=== PATIENT | male | born 1930 | race Caucasian/White ===

== ENCOUNTER 2017-02-03 21:04 | Inpatient (IN) | payer MEDICARE, BC ==
[2017-02-04] MEDS ORDERED: Acetaminophen 325 MG Tab PO PRN (00:34)
[2017-02-04] MEDS ORDERED: Ibuprofen 400 MG Tab PO PRN (00:34)
[2017-02-04] MEDS ORDERED: Ondansetron 4 MG/2 ML SDV IV PRN (00:34)
[2017-02-04] MEDS ORDERED: Ondansetron 4 MG Tab.DIS PO PRN (00:34)
[2017-02-04] MEDS ORDERED: Sodium Chloride 0.9% 10 ML Syringe FLUSH PRN (01:49)
[2017-02-04] MEDS: Sodium Chloride 0.9% 1,000 ML IV SCH ×2 (10:55→18:59)
--- NOTE | 2017-02-04 11:27 | CR ---
INDICATION: Fall. CHEST: A single AP upright view of the chest was obtained 02/03/2017. The heart is normal in size and shape. The aorta is tortuous with calcification in the arch. Median sternotomy is noted with clips in the area of coronary arteries. Overlying EKG leads are noted. An active infiltrate or effusion, contusion, or pneumothorax was not identified. IMPRESSION: No acute process. MTDD
[2017-02-04] MEDS ORDERED: Metoprolol Tartrate 25 MG Tab PO SCH (12:00)
[2017-02-04] MEDS: Aspirin 325 MG Tab.EC PO SCH (12:14)
--- NOTE | 2017-02-04 12:16 | CR ---
INDICATION: Fell last night, hip pain. PELVIS WITH LEFT HIP: Frontal view of the pelvis and a lateral of the left hip were obtained and revealed mild degenerative changes at the hip joints with suggestion of some very minimal narrowing of the cranial lateral aspect of the left hip joint space. The cortex is somewhat irregular in the intertrochanteric area on the left, raising question of minimally displaced fracture in that area. CT would be confirmatory as felt to be clinically necessary. Mild degenerative changes are noted at sacroiliac joints additionally. IMPRESSION: 1. Cannot exclude undisplaced fracture at the intertrochanteric area on the left. As felt to be clinically necessary, CT may be helpful for confirmation. 2. Mild degenerative changes hip joint on the right and mild to moderate on the left, with some slight loss of cranial lateral joint space at the left hip joint. 3. ASD with iliofemoral artery calcifications. Report was called to Dr. Truong at 1135 hours, 02/04/2017. NOLA
--- NOTE | 2017-02-04 13:30 | CT ---
INDICATION: Left hip pain after a fall. Question fracture. CT LEFT LOWER EXTREMITY/HIP: Spiral 1.25-mm axial sections were obtained through the pelvis and hips. Arterial calcifications are noted incidentally. Degenerative changes are noted to a mild degree at the right hip, mild to moderate degree at the left hip with moderate loss of joint space cranial laterally at the hip joint on the left. A definite fracture site or dislocation was not identified. The prostate is enlarged, measuring 54 x 62 x 59 mm anteroposterior, transverse, and craniocaudad diameters. IMPRESSION: 1. No evidence of a fracture of the left hip or adjacent pelvis. 2. Degenerative changes are noted at the left hip joint with moderate joint space narrowing. 3. Minimal degenerative change is noted at the right hip joint. 4. ASD. 5. Prostatic enlargement with mild thickening of the urinary bladder wall, raising question of some trabeculation. Report was called to Dr. Truong immediately after the examination was completed, 02/04/2017. NOLA
[2017-02-04] MEDS ORDERED: Nitroglycerin 0.4 MG Tab.SL SL PRN (13:44)
[2017-02-04] MEDS: Meloxicam 7.5 MG Tab PO SCH (14:48)
[2017-02-04] MEDS: Clopidogrel 75 MG Tab PO SCH (14:48)
--- NOTE | 2017-02-04 15:06 | HP ---
ADMISSION DATE: 02/04/2017 CHIEF COMPLAINT: Recent fall with inability to get up, left hip and back pain. 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 Mr. 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 He says he was working yesterday, got off, went to the [employer]. He says he had a drink with his buddies, then went home. He got out of the car and apparently was walking around towards the steps to get into his house. He went to place something in the garbage that was on the steps and fell backwards, landing on the concrete. He said he did not lose consciousness. He landed flat on his back, may be a little bit on his left side and then was unable to get up. His who was in the house did not hear him for about 2 hours. Eventually, she became concerned, because he had not come home yet, contacted the granddaughter, because she thought she heard something in the garage. The granddaughter drove around looking for him, and eventually went to the house, saw that the garage door was opened and saw him lying on the concrete, unable to get up. She contacted the ambulance who brought him to the emergency room. There he was evaluated, had CT of his head and x-rays of his neck, all of which were unremarkable, but he was found to have significant elevation in CK, and his troponin was up slightly. He was, therefore, admitted for observation and further evaluation. He says he did not have any chest pain or shortness of breath. He says he just fell backwards and was unable to maintain his balance while on the steps. He again denies any headache at this time. He has no neck pain. He does complain of pain in his left back area, but no shortness of breath. He also complains of some pain in the left lateral hip and around his left knee area. He denies any significant dyspnea on exertion, nausea, vomiting, or diaphoresis. He has had no recent melena, hematochezia, hematemesis, hemoptysis, or hematuria. No fever, chills, night sweats, or cough have been noted. He otherwise says he has been feeling well. Over the years, we have noticed a slow progression of short-term memory loss, but he seems to reorient fairly well, and he is still able to function at work, although they have simplified his jobs quite a bit. He also is quite hard of hearing, but refuses to wear hearing aids regularly. CURRENT MEDICATIONS: Include: 1. Metoprolol succinate 100 mg at bedtime. 2. Meloxicam 7.5 mg daily for arthritis. 3. Lovastatin 40 mg daily. 4. Amlodipine 5 mg at bedtime. 5. Plavix 75 mg daily. 6. Aspirin 162 mg daily. 7. He has p.r.n. Nitrostat, apparently has not been using it. ALLERGIES: None that are known. SOCIAL HISTORY: He does not smoke. He says he did so for a short time many years ago, but has quit for many years. Alcohol, one or maybe two drinks a day. PAST MEDICAL HISTORY: Pertinent. In that, he has had a previous T and A in 1943. In 1997, he had a right rotator cuff repair. He had an emergent coronary artery bypass in 2002 for chest pain and a positive angiogram that was a 5- vessel bypass. He had a normal Cardiolite stress test in 2005. He began having recurrent chest pain in 2009. At that time, a Lexiscan was positive for inferior ischemia. In 2010, he underwent a stent of his right coronary artery. He has been pretty much asymptomatic since and has been quite active. He still walks on a regular basis, and as I said, still working. He had a TUR of his prostate in 2002 for BPH symptoms, apparently pathology was negative. FAMILY HISTORY: Unremarkable at this age. REVIEW OF SYSTEMS: Other than that discussed above, he still complains of decreased hearing. He has some discomfort, especially in his knees and low back area intermittently, but the meloxicam has helped that considerably. He denies any abdominal complaints. He does admit to nocturia once or twice at night, but no significant incontinence. He says he has a history of gout, but is currently not taking any medicine for it. PHYSICAL EXAMINATION: VITAL SIGNS: At this time, shows him to be afebrile. Initial blood pressure when he arrived was 126/57, pulse is 82 and regular, respirations are 22, O2 saturation on room air is 100%. His weight is 175 pounds, height is 5 feet 2 inches. HEENT: Head is normocephalic and atraumatic. The pupils are round and reacting well to light and accommodation. He has significant cataracts bilaterally. Sclerae and conjunctivae are clear. TMs are both clear. Nasal passages are open without discharge. Pharynx and palate are unremarkable except for somewhat dry mucous membranes. They are otherwise pink. NECK: Supple. No specific spinous process tenderness is noted. He has some ecchymosis on the upper thoracic midline of his back and then significant ecchymosis on the left lower back area with some tenderness. There is no crepitation. The chest is clear to auscultation and percussion. No chest wall tenderness is noted except in the back area on the left side. CARDIOVASCULAR: Reveals a normal S1 and S2 with a regular rhythm. There is no murmur, rub, or gallop noted. Sternotomy scar is well healed. ABDOMEN: Soft, somewhat obese, but at this time totally nontender. There is no rebound or rigidity. Bowel sounds are normal. No bruits are noted. EXTREMITIES: Without clubbing, but he has multiple ecchymotic areas in and around the knees on both legs, especially the lateral aspect of the left leg. He has rather significant point tenderness over the greater trochanter on the left hip. Rotation of his left hip is quite painful, especially over the greater trochanteric area. Leg length is equal. Hypertrophy of the toenails is noted bilaterally. He has excellent peripheral pulses distally. There is no neurocirculatory deficits noted in the upper or lower extremities. He can tell me he is at the hospital. He knows the day, date, and year. He has a little trouble remembering what has happened, but the more I talked to him, the more we are able to get a better history. LABORATORY DATA: The patient had a cervical spine x-rays done showing some degenerative change, but otherwise, no other abnormalities. Chest x-ray showed no acute process with no infiltrates, no evidence of fractures, and evidence of an old sternotomy. His hemoglobin was 14.6, hematocrit of 43.6, white count was elevated at 21,900 with 88 segs, 7 lymphocytes, 5 monos. His Protime INR was 1.15. Sodium 136, potassium of 4, chloride of 107, CO2 was 18, BUN was elevated at 32, creatinine 1.5, glucose 148, calcium was 8.8. Liver functions are normal except for a slight elevation in AST at 47. He had a creatine kinase elevated at 1149. His troponin was slightly elevated at 1.17. Total protein and albumin were normal. Urinalysis showed a specific gravity of 1.030, 15% ketones, and large amount of occult blood, 5 to 10 rbc's and 0 to 5 wbc's. Few coarse granular casts and fine granular casts were noted. Blood alcohol was less than 0.01. IMPRESSION: 1. Recent fall with contusion of his left chest, increased left hip pain. 2. Arteriosclerotic heart disease with previous history of coronary artery bypass and coronary artery stenting. 3. History of transurethral resection of the prostate for benign prostatic hyperplasia. 4. History of hypertension. 5. Osteoarthritis. PLAN: We are going to repeat the patient's troponin and we will get x-rays of his hip. Depending on those results, we will proceed from there. Continue his beta paul, aspirin, and Plavix. /[id number] /[place]
[2017-02-04] MEDS ORDERED: amLODIPine 5 MG Tab PO SCH (21:00)
[2017-02-04] MEDS ORDERED: Metoprolol Succinate 100 MG Tab.ER PO SCH (21:00)
[2017-02-05] MEDS: Sodium Chloride 0.9% 1,000 ML IV SCH (02:50)
--- NOTE | 2017-02-05 06:54 | ER ---
DATE SEEN: 02/03/2017 TIME SEEN: The patient was seen at 2115 hours. HISTORY OF PRESENT ILLNESS: Greg is an 86-year-old man who was on the garage, fell down, and laid on the floor with loss consciousness. He does not remember why this occurred. He denies headache, neck stiffness, trauma, neck pain, jaw pain, back pain, headache, compromised vision, diplopia, blurred vision. When I asked what happened, he says "I don't know," "I was in the garage, was working on the house and I just fell down." His lives in the house did not hear him. She hollered at him several times, finally came out to the garage several hours later, found him on the floor. Ambulance was called. He was transferred to the hospital for further evaluation. The patient denies history of heart attack, chest pain, shortness of breath, cough, recent infection, headache, neck stiffness, seizure, and arrhythmia. 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 Status post CABG, hypertension, status post TURP. Apparently, he had laid on the floor of the garage for approximately 2 hours and his became concerned, called the granddaughter, who called the ambulance who brought him to the hospital for further evaluation. PAST MEDICAL HISTORY: Denies chest pain, shortness of breath, cough, smoking, blood in stool, black tarry stool, diarrhea, constipation, GERD. He has had some memory loss over the past years. MEDICATIONS: 1. Metoprolol succinate 100 mg h.s. 2. Aspirin 162 mg daily. 3. Plavix 75 mg daily. 4. Nitrostat p.r.n. 5. Amlodipine 5 mg h.s. 6. Lovastatin 40 mg daily. 7. Meloxicam 7.5 mg daily. 8. Metoprolol succinate 100 mg h.s. SOCIAL HISTORY: Alcohol occasionally up to 1-2 drinks per day. Smoking, quit many years ago. No longer smoking. As noted above, previous cardiac CABG 2002, five-vessel bypass, stent placement 2010, right coronary artery, TURP 2002. REVIEW OF SYSTEMS: Noncontributory. PHYSICAL EXAMINATION: GENERAL: Alert man. No evidence for ecchymosis,but he does have three superficial abrasion to the frontal area of his face. HEENT: PERRLA intact. Pharynx without abnormality. No hemotympanum. No Jackson sign. No ecchymosis, swelling, tenderness to scalp or areas of trauma. No facial irregularity or tenderness to maxillary, facial, or nasal structures. Jaw without abnormality. Teeth without abnormality. Pharynx without erythema. NECK: No bruits in neck. LUNGS: Clear to auscultation without rales, rhonchi, or wheezes. No thyromegaly. HEART: S1, S2. No murmur. ABDOMEN: Increased abdominal girth, not extensive. EXTREMITIES: Lower extremities without edema. Ecchymosis, knees. Left lateral hip discomfort. DIAGNOSTIC DATA: CAT scan of the cervical spine, degenerative changes. No fracture. CAT scan of the head, mild periventricular subcortical white matter, decreased density. No acute intracranial pathology or bleed. EKG: Sinus rhythm, borderline NE interval prolongation 216 microseconds. LABORATORY FINDINGS: White count 21,900, PMNs 88, lymphs 7, monos 5, hemoglobin 14.6, INR 1.15. Complete metabolic panel: Sodium 136, potassium 4.0, chloride 107, CO2 of 18, BUN 32, creatinine 1.5, GFR is 44, BUN and creatinine ratio 21.3. Glucose 148. CPKs 1149. Troponin slightly elevated at 0.17. Urinalysis: Large blood, 15 ketones, moderate mucus. CPK 1149. Ethyl alcohol less than 0.01. ASSESSMENT: 1. Possible [id number] myocardial infarction. 2. Elevated CPK secondary to rhabdomyolysis that also could elevate his troponin , but doubtful. 3. The patient's hemovascular status is stable. 4. If he has myocardial injury, it would be a [id number] myocardial infarction. 5. Sinus rhythm. No evidence for ST elevation. 6. Leukocytosis, etiology indeterminate with neutrophilia. 7. Trace elevation of anticoagulation, glucose elevation. 8. Hypertension, controlled. 9. Arthritis. 10.Dyslipidemia. 11.The patient is admitted for further observation on telemetry. No evidence for central nervous system bleed or concussion. /[id number] MAXX/[place] FERNANDEZD
[2017-02-05] MEDS: Meloxicam 7.5 MG Tab PO SCH (09:05)
[2017-02-05] MEDS: Clopidogrel 75 MG Tab PO SCH (09:05)
[2017-02-05] MEDS: Aspirin 325 MG Tab.EC PO SCH (09:05)
--- NOTE | 2017-02-05 13:42 | PN ---
DATE SEEN: 02/05/2017 SUBJECTIVE: This 86-year-old gentleman is seen today for followup. He had a fall recently and laid on his garage floor for a couple of hours. He presented to the emergency room somewhat confused and found to have a mildly elevated troponin. We elected to admit him for a possible CT and further workup. He has had no headaches, denies any blurred vision. No nausea or vomiting. Denies any chest pain, and he had no chest pain throughout the entire episode. His medications were reviewed. Allergies were reviewed. Labs were also reviewed when he came in. On the evening of admission, his troponin was 0.17. Yesterday, it ezekiel to 0.34. CK was also elevated at 1149 and his white count was elevated of 21,900. Chest x-ray was unremarkable, but he had extensive bruising across his upper back on both sides, in the midline, and then on the left lower back and flank area along the left hip on both legs. X-rays of his hip were done because of severe tenderness over the greater trochanteric area and increased pain with movement. The x-ray showed a possible fracture through the femoral neck. CT scan was done for confirmation, and this proved to be negative. Today, he says he is feeling better. He slept better. He has no shortness of breath. Denies any chest pain or palpitations. He has been monitored on telemetry for possible CT, and thus far, no significant rhythm disturbances have been noted. OBJECTIVE: GENERAL: He appears to be in no acute distress at this time. VITAL SIGNS: Blood pressure 132/65, pulse is 94 and regular, respirations are 20 and unlabored, O2 saturation is 96%. HEENT: Unremarkable. The head proved to be atraumatic and normocephalic. NECK: He has slightly decreased range of motion of his neck, but no spinous process tenderness or pain. Ecchymosis is noted at the base of the neck posteriorly at approximately T1 and T2 with only minimal tenderness. He has significant ecchymosis across the upper shoulders bilaterally in the back area and then on the left side of his chest with only minimal tenderness. CHEST: Completely clear. CARDIOVASCULAR: Reveals a normal S1 and S2 without murmur, rub, or gallop. ABDOMEN: Soft. No specific point tenderness. Some obesity is noted. There is no rebound or rigidity. EXTREMITIES: Without clubbing, no edema. He still has point tenderness over the greater trochanteric area in the left hip. He has ecchymotic areas in and around both knees and on the left hip. His range of motion, however, is full with only minimal discomfort with movement of the hip. NEUROLOGIC: His cranial nerves are intact. His sensory and motor exam is normal. He is able to tell me the day, date, and he missed the year by 1, and he missed the actual date by 1. He could tell me the correct day of the week, however, and he knew the correct month, he knew the president, and he knew who I am. He knew where he is. LABORATORY DATA: Lab today revealed white count down to 11,100 with normal differential; hemoglobin is 12.8, and this has dropped, but presumed from hydration as he was a bit dehydrated when he came in, and IV fluids have been running through the night. Sodium 137, potassium at 3.7, creatinine is down to 1.2, BUN of 30. His troponin has dropped from 0.34 yesterday afternoon, down to 0.19 today. IMPRESSION: 1. Recent fall with some mild rhabdomyolysis. The elevated troponin I think is more related to the stress from the fall. I do not see any evidence of myocardial infarction, and his EKG did not show any evidence of ST-T segments indicative of myocardial infarction. 2. History of hypertension. 3. Previous history of benign prostatic hypertrophy. 4. Osteoarthritis. PLAN: We are going to saline lock his IV, get him up and about, have PT/OT take a look at him and see how he is doing, and we will recheck a troponin later and proceed from there. /[id number] WM/MODL
[2017-02-05 15:19] VITALS: BP 154/69
--- NOTE | 2017-02-06 01:54 | PN ---
DATE SEEN: 02/05/2017 TIME: 1827 hours. SUBJECTIVE: This is an 86-year-old gentleman seen today for followup. He had a recent fall, lying in his garage floor for 2 hours. He was brought in and found to have some multiple contusions of his back, elevated creatine kinase and mildly elevated troponin. We rechecked his troponin and that had risen yesterday. His EKG was normal. Chest x-ray was unremarkable. He had no chest pain whatsoever, so was recheck today, actually had improved considerably. He has only minimal discomfort. There is some mild confusion noted in that he asks the same question multiple times, but he was able to tell me the day, date, year, could tell me where he was, my name, and knew the president. Because of that, we have had the PT/OT take a look at him. They feel he has competent to be at home for ADL and strengths. His balance actually was quite good. We have had him up and walking around, he has done well. His appetite has been good. He denies any headaches. He has had no other complaints of discomfort and would like to be discharged home. OBJECTIVE: GENERAL: He appears to be quite comfortable at this time and in no acute distress, quite anxious to leave. VITAL SIGNS: Blood pressure was 154/69, pulse is 94 and regular, respirations were 20 and unlabored, O2 saturations 98%. HEENT: Unremarkable with head being normocephalic and atraumatic. Bilateral cataracts are noted. CHEST: Clear. CARDIOVASCULAR: Unchanged with a regular rhythm. There was no gallop or rub. ABDOMEN: Unremarkable except for obesity. EXTREMITIES: Negative. IMPRESSION: 1. Recent fall with multiple contusions of his upper and lower back on both legs etc. 2. Arteriosclerotic heart disease with previous history of coronary artery bypass and coronary artery stenting, but currently stable. 3. Hypertension. 4. Osteoarthritis. PLAN: We had a long discussion. We have been able to get the patient to agreed to home health evaluation as his apparently is much more forgetful and he has been taking care of her. I did talk to him about maybe not driving now for a bit and see how he does and we will see with Home Health. He says about his home situation. I think it would be prudent because of his forgetfulness, the recent fall, multiple contusions, and most importantly evaluating the home situation that he have Home Health, and a [id number] discussion was made with the patient regarding the above. We will plan on followup in 2 weeks for recheck, but if new symptoms are noted or becomes worse in any way to let us know. /[id number] /[place]
== END 2017-02-05 18:54 | disposition home health service (06) | DRG 566 ==
LOC: FB.ED 21:04 → FB.MS 02-04 00:34 → FB.ICU 02-04 12:20 → OBSVTOIN 02-04 12:20 → FB.MS 02-05 11:36
PROVIDERS: ADMIT Emergency Medicine; ATTEND Family Medicine
DX: T79.6XXA Traumatic ischemia of muscle, initial encounter (principal); W17.89XA Other fall from one level to another, initial encounter; S80.12XA Contusion of left lower leg, initial encounter; S80.11XA Contusion of right lower leg, initial encounter; S30.0XXA Contusion of lower back and pelvis, initial encounter; S20.229A Contusion of unspecified back wall of thorax, initial encounter; W10.8XXA Fall (on) (from) other stairs and steps, initial encounter; Y93.01 Activity, walking, marching and hiking; Y92.008 Other place in unspecified non-institutional (private) residence as the place of occurrence of the external cause; M25.552 Pain in left hip; I10 Essential (primary) hypertension; R77.8 Other specified abnormalities of plasma proteins; Z87.891 Personal history of nicotine dependence; I25.10 Atherosclerotic heart disease of native coronary artery without angina pectoris; E78.5 Hyperlipidemia, unspecified; Z95.1 Presence of aortocoronary bypass graft; Z95.5 Presence of coronary angioplasty implant and graft; M19.90 Unspecified osteoarthritis, unspecified site; H91.90 Unspecified hearing loss, unspecified ear; Z79.82 Long term (current) use of aspirin; R41.0 Disorientation, unspecified
CPT/HCPCS: 36415 ×2; 70450; 71010; 72125; 73501; 73700; 80053; 82550; 84484 ×2; 85025; 85610; 87040; 93005; 99285; A9270 ×2; G0480; J7040; J7050; 80048; 81001; 99284

== ENCOUNTER 2018-01-06 16:25 | Emergency (ER) | payer MEDICARE, BC ==
[2018-01-06] MEDS ORDERED: Amoxicillin/Clavulanate K 500-125 MG Tab PO ONE (18:14)
[2018-01-06 18:35] VITALS: BP 155/60
--- NOTE | 2018-01-08 01:28 | ER ---
DATE SEEN: 01/06/2018 TIME SEEN: The patient was seen at 1655 hours. HISTORY OF PRESENT ILLNESS: This 87-year-old man comes in with a history of severe right nasal bleed. He was seen at 1655 hours. Brought in by his son. PAST MEDICAL HISTORY: Hypertension, atherosclerotic vascular disease. No history of stroke and no heart attacks. MEDICATIONS: 1. He is on antihypertensive medicine metoprolol succinate 100 mg daily. 2. Meloxicam for arthritis. 3. Lovastatin for dyslipidemia. 4. Clopidogrel for irregular heartbeats, atrial fibrillation. 5. Amlodipine 5 mg for hypertension. 6. Acetaminophen p.r.n. 7. Aspirin 162 mg daily. ALLERGIES: None. REVIEW OF SYSTEMS: Negative, except the patient noted the onset of bleeding in the right naris, but he did not feel lightheaded. Precautions were taken. He did not fall. He is taking clopidogrel. He is not picking his nose. He has spontaneous onset of right nasal bleed. The bleed is diminished. It went to the back of his throat. PHYSICAL EXAMINATION: GENERAL: Alert man, short in stature, in mild distress, pleasant, and decreased hearing. HEENT: He has his own teeth. PERRLA intact. Pharynx without abnormality. There is trace of blood in the right posterior pharynx. Nares, right crust of blood mid septum.. There was spontaneous bleeding to the right naris. Left naris negative. He is constantly placing a towel on his face, the towel is soaked with blood. Constant bleeding persists. NECK: No bruits. No thyromegaly. No masses. LUNGS: Clear with rales at the bases, posterior. HEART: S1, S2. No irregular rate and rhythm. ABDOMEN: Soft. No guarding. No abdominal discomfort. EXTREMITIES: Without abnormality. No pedal edema. ASSESSMENT: Right naris epistaxis. He was treated aggressively and quickly, no cocaine was available for nasal spray, consequently lidocaine plus Afrin sprayed into his nares. Once this was completed, then repetitive efforts to suction and visualize the site of bleeding demonstrated middle septal bleed. This was treated with the Rhino Rocket. The patient tolerated this with moderate discomfort, but was appreciative that the bleeding stopped. Balloon was inflated. Later on, actually either it fell off or he pulled it out, but it came out and was replaced. The balloon was over inflated and gradually the volume was decreased. Total volume, 5 to 6 mL. His pharynx was rechecked on multiple occasions and after gargling and washing, the pharynx was noted, he had no further bleeding. The patient was then dismissed home. He will have his Rhino Rocket removed in 3 days. Use Augmentin 500 mg t.i.d. and use probiotics, avoid pulling on the balloon. DIAGNOSES: 1. Right naris epistaxis. 2. Transient hypertension. 3. Dyslipidemia. 4. Anticoagulants for atrial fibrillation. 5. Atherosclerotic vascular disease. FOLLOWUP: The patient to follow up with his doctor in 3 days. /[id number] MAXX/[place] VACA
== END 2018-01-06 18:25 | disposition home or self-care (01) ==
LOC: FB.ED 16:25
DX: R04.0 Epistaxis (principal); I10 Essential (primary) hypertension; E78.5 Hyperlipidemia, unspecified; I48.91 Unspecified atrial fibrillation; Z79.01 Long term (current) use of anticoagulants; Z79.82 Long term (current) use of aspirin
CPT/HCPCS: 30903; 36415; 80053; 83605; 85025; 86140; 87040; 99283; A9270; 30901

== ENCOUNTER 2019-01-26 09:19 | Inpatient (IN) | payer MEDICARE, BC ==
--- NOTE | 2019-01-26 10:14 | EDM.PDOC ---
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 Yesterday was not checked by granddaughter, but granddaughter called him. He "sounded different like he had laryngitis"..." his voice was different." This morning he was found on the floor approximately 9:00 AM by his granddaughter. The fall duration is indeterminate and unwitnessed. He was found laying next to his bed. He denies any pain. Indeterminate if he has taken his morning medicines - Related Data Allergies Allergy/AdvReac Type Severity Reaction Status Date / Time No Known Allergies Allergy Verified 01/26/19 09:29 Home Meds: Home Meds Aspirin [Halfprin] 81 mg PO DAILY 02/04/17 [History] Clopidogrel [Plavix] 75 mg PO DAILY 02/04/17 [History] Lovastatin [Mevacor] 40 mg PO WITHDINNER 02/04/17 [History] Meloxicam 7.5 mg PO DAILY 02/04/17 [History] Metoprolol Succinate 100 mg PO BEDTIME 02/04/17 [History] Nitroglycerin [Nitrostat] 0.4 mg PO Q5M PRN 02/04/17 [History] amLODIPine [Norvasc] 5 mg PO BEDTIME 02/04/17 [History] Acetaminophen [Tylenol] 650 mg PO Q4H PRN #100 tablet 02/05/17 [Rx] Esomeprazole [NexIUM] 20 mg PO DAILY 01/26/19 [History] Past Medical History HEENT History: Reports: Hard of Hearing, Impaired Vision Genitourinary History: Reports: Other (See Below) Other Genitourinary History: prostate surgery Musculoskeletal History: Reports: Back Pain, Chronic - Past Surgical History Cardiovascular Surgical History: Reports: Coronary Artery Bypass Social & Family History - Family History Family Medical History: Unobtainable - Tobacco Use Smoking Status *Q: Never Smoker - Caffeine Use Caffeine Use: Reports: Coffee - Recreational Drug Use Recreational Drug Use: No ED ROS GENERAL - Review of Systems Review Of Systems: See Below Constitutional: Reports: Weakness, Other (Dementia decreased hearing confusion) HEENT: Reports: Hearing Loss, Other (3 days off) Respiratory: Reports: Cough Cardiovascular: Reports: No Symptoms Endocrine: Reports: No Symptoms GI/Abdominal: Reports: No Symptoms : Reports: No Symptoms Musculoskeletal: Reports: No Symptoms Skin: Reports: No Symptoms Neurological: Reports: No Symptoms Psychiatric: Reports: No Symptoms Hematologic/Lymphatic: Reports: No Symptoms Immunologic: Reports: No Symptoms ED EXAM, GENERAL - Physical Exam Exam: See Below Free Text/Narrative:: Asthenic pleasant snoring gentleman easily aroused whose skin feels warm, has marked decreased hearing and is attended by his granddaughter who is very attentive, helpful and knowledgeable. Exam Limited By: Altered Mental Status General Appearance: Alert, Mild Distress, Other (Sleeping, snoring, but easily aroused) Eye Exam: Bilateral Eye: Normal Inspection Ears: Normal External Exam, Normal Canal, Normal TMs, Hearing Loss Ear Exam: Bilateral Ear: Auricle Normal, Canal Normal, TM normal Nose: Normal Inspection Throat/Mouth: Normal Inspection, Normal Lips, Normal Teeth, Normal Gums, Normal Oropharynx Head: Atraumatic, Normocephalic Neck: Normal Inspection, Other (no bruits) Respiratory/Chest: No Respiratory Distress, No Accessory Muscle Use, Other ( Scattered rales) Cardiovascular: Normal Peripheral Pulses, Regular Rate, Rhythm, No Edema, No Gallop, No JVD, No Murmur Peripheral Pulses: 1+: Radial (L), Radial (R), Dorsalis Pedis (L), Dorsalis Pedis (R) GI/Abdominal: Normal Bowel Sounds, Soft, Non-Tender, No Organomegaly, No Distention, No Abnormal Bruit (Male) Exam: Deferred Rectal (Males) Exam: Deferred Back Exam: Normal Inspection Neurological: Alert, Oriented, CN II-XII Intact, Normal Cognition, Normal Reflexes, No Motor/Sensory Deficits, Other (Decreased hearing) Psychiatric: Normal Affect, Normal Mood Skin Exam: Warm, Dry, Normal Color Lymphatic: No Adenopathy EKG INTERPRETATION Rhythm: NSR [place]: Normal P-Wave: Present QRS: Normal ST-T: Normal QT: Normal EKG Interpretation Comments: Borderline increased IL interval and QT interval Course - Vital Signs Last Recorded V/S: Last Vital Signs Temp 36.9 C 01/26/19 13:30 Pulse 111 H 01/26/19 13:30 Resp 18 01/26/19 13:30 BP 146/67 H 01/26/19 13:30 Pulse Ox 95 01/26/19 13:30 - Orders/Labs/Meds Orders: Active Orders 24 hr Category Date Time Status EKG Documentation Completion [RC] ASDIRECTED Care 01/26/19 10:10 Active CXR [Chest 1V Frontal] [CR] Stat Exams 01/26/19 10:09 Taken Cervical Spine wo Cont [CT] Stat Exams 01/26/19 10:14 Taken Head wo Cont [CT] Stat Exams 01/26/19 10:09 Taken CULTURE BLOOD [BC] Urgent Lab 01/26/19 11:50 Results CULTURE BLOOD [BC] Urgent Lab 01/26/19 12:00 Received CULTURE STREP A CONFIRMATION [RM] Stat Lab 01/26/19 10:26 Results STREP SCRN A RAPID W CULT CONF [RM] Stat Lab 01/26/19 10:26 Results Blood Culture x2 Reflex Set [OM.PC] Urgent Oth 01/26/19 11:33 Ordered Medication Orders Acetaminophen (Tylenol) 650 mg PO Q4H PRN PRN Reason: Pain (Mild 1-3)/fever Albuterol/Ipratropium (Duoneb 3.0-0.5 Mg/3 Ml) 3 ml NEB QIDRT [facility] Bisacodyl (Dulcolax) 5 mg PO DAILY PRN PRN Reason: Constipation Sodium Chloride (Normal Saline) 1,000 mls @ 125 mls/hr IV ASDIRECTED [facility] Last Admin: 01/26/19 14:32 Dose: 125 mls/hr Vancomycin HCl 500 mg/Vancomycin HCl 750 mg/ Sodium Chloride 500 mls @ 333.333 mls/hr IV ONETIME ONE Stop: 01/26/19 16:29 Metoprolol Tartrate (Lopressor) 25 mg PO BID [facility] Stop: 01/26/19 21:01 Ondansetron HCl (Zofran Odt) 4 mg PO Q4H PRN PRN Reason: nausea, able to take PO Vancomycin HCl (Vancomycin) 1 gm IV .PHARMACY TO DOSE [facility] Labs: Laboratory Tests 02/26/19 02/26/19 02/26/19 Range/Units 10:18 10:25 10:25 WBC 18.8 H (4.5-12.0) X10-3/uL RBC 5.33 (4.30-5.75) x10(6)uL Hgb 15.0 (11.5-15.5) g/dL Hct 44.2 (30.0-51.3) % MCV 82.8 (80-96) fL MCH 28.1 (27.7-33.6) pg MCHC 33.9 (32.2-35.4) g/dL RDW 15.3 (11.5-15.5) % Plt Count 324 (125-369) X10(3)uL MPV 7.6 (7.4-10.4) fL Add Manual Diff Yes Neutrophils % (Manual) 85 H (46-82) % Band Neutrophils % 5 (0-6) % Lymphocytes % (Manual) 6 L (13-37) % Monocytes % (Manual) 4 (4-12) % PT (8.7-11.1) INR (0.89-1.13) D-Dimer, Quantitative (0.0-0.59) mg/LFEU Sodium (135-145) mmol/L Potassium (3.5-5.3) mmol/L Chloride (100-110) mmol/L Carbon Dioxide (21-32) mmol/L BUN (7-18) mg/dL Creatinine (0.70-1.30) mg/dL Est Cr Clr Drug Dosing mL/min Estimated GFR (MDRD) (>60) BUN/Creatinine Ratio (9-20) Glucose (80-116) mg/dL Lactic Acid (0.4-2.2) mmol/L Calcium (8.6-10.2) mg/dL Total Bilirubin (0.1-1.3) mg/dL AST (5-25) IU/L ALT (12-36) U/L Alkaline Phosphatase (56-112) IU/L Creatine Kinase (60-160) IU/L Troponin I 0.178 H* (<0.017-0.056) ng/mL NT-Pro-B Natriuret Pep (<=450) pg/mL Total Protein (6.0-8.0) g/dL Albumin (2.9-4.5) g/dL Globulin g/dL Albumin/Globulin Ratio TSH, Ultra Sensitive 1.36 (0.36-3.74) IU/mL Urine Color Yellow (YELLOW) Urine Appearance Clear (CLEAR) Urine pH 6.0 (5.0-6.5) Ur Specific [place] 1.010 (1.010-1.025) Urine Protein 30 H (NEGATIVE) mg/dL Urine Glucose (UA) Normal (NEGATIVE) mg/dL Urine Ketones 15 H (NEGATIVE) mg/dL Urine Occult Blood Moderate H (NEGATIVE) Urine Nitrite Negative (NEGATIVE) Urine Bilirubin Negative (NEGATIVE) Urine Urobilinogen Normal (NEGATIVE) mg/dL Ur Leukocyte Esterase Negative (NEGATIVE) Urine RBC 5-10 (0) Urine WBC 0-5 (0) Ur Squamous Epith Cells Few H (NS,R,O) Urine Bacteria Few H (NS) Fine Granular Casts Occasional H (NS) WBC Casts Occasional H (NS) 01/26/19 01/26/19 01/26/19 Range/Units 10:25 10:25 10:25 WBC (4.5-12.0) X10-3/uL RBC (4.30-5.75) x10(6)uL Hgb (11.5-15.5) g/dL Hct (30.0-51.3) % MCV (80-96) fL MCH (27.7-33.6) pg MCHC (32.2-35.4) g/dL RDW (11.5-15.5) % Plt Count (125-369) X10(3)uL MPV (7.4-10.4) fL Add Manual Diff Neutrophils % (Manual) (46-82) % Band Neutrophils % (0-6) % Lymphocytes % (Manual) (13-37) % Monocytes % (Manual) (4-12) % PT 11.4 H (8.7-11.1) INR 1.18 H (0.89-1.13) D-Dimer, Quantitative 2.05 H (0.0-0.59) mg/LFEU Sodium 134 L (135-145) mmol/L Potassium 4.0 (3.5-5.3) mmol/L Chloride 99 L (100-110) mmol/L Carbon Dioxide 20 L (21-32) mmol/L BUN 22 H (7-18) mg/dL Creatinine 2.0 H* (0.70-1.30) mg/dL Est Cr Clr Drug Dosing 19.34 mL/min Estimated GFR (MDRD) 32 L (>60) BUN/Creatinine Ratio 11.0 (9-20) Glucose 179 H (80-116) mg/dL Lactic Acid (0.4-2.2) mmol/L Calcium 8.7 (8.6-10.2) mg/dL Total Bilirubin 0.7 (0.1-1.3) mg/dL AST 25 (5-25) IU/L ALT 18 D (12-36) U/L Alkaline Phosphatase 97 (56-112) IU/L Creatine Kinase (60-160) IU/L Troponin I (<0.017-0.056) ng/mL NT-Pro-B Natriuret Pep 2059 H* (<=450) pg/mL Total Protein 7.3 (6.0-8.0) g/dL Albumin 3.3 (2.9-4.5) g/dL Globulin 4.0 g/dL Albumin/Globulin Ratio 0.8 TSH, Ultra Sensitive (0.36-3.74) IU/mL Urine Color (YELLOW) Urine Appearance (CLEAR) Urine pH (5.0-6.5) Ur Specific [place] (1.010-1.025) Urine Protein (NEGATIVE) mg/dL Urine Glucose (UA) (NEGATIVE) mg/dL Urine Ketones (NEGATIVE) mg/dL Urine Occult Blood (NEGATIVE) Urine Nitrite (NEGATIVE) Urine Bilirubin (NEGATIVE) Urine Urobilinogen (NEGATIVE) mg/dL Ur Leukocyte Esterase (NEGATIVE) Urine RBC (0) Urine WBC (0) Ur Squamous Epith Cells (NS,R,O) Urine Bacteria (NS) Fine Granular Casts (NS) WBC Casts (NS) 01/26/19 01/26/19 Range/Units 10:25 12:00 WBC (4.5-12.0) X10-3/uL RBC (4.30-5.75) x10(6)uL Hgb (11.5-15.5) g/dL Hct (30.0-51.3) % MCV (80-96) fL MCH (27.7-33.6) pg MCHC (32.2-35.4) g/dL RDW (11.5-15.5) % Plt Count (125-369) X10(3)uL MPV (7.4-10.4) fL Add Manual Diff Neutrophils % (Manual) (46-82) % Band Neutrophils % (0-6) % Lymphocytes % (Manual) (13-37) % Monocytes % (Manual) (4-12) % PT (8.7-11.1) INR (0.89-1.13) D-Dimer, Quantitative (0.0-0.59) mg/LFEU Sodium (135-145) mmol/L Potassium (3.5-5.3) mmol/L Chloride (100-110) mmol/L Carbon Dioxide (21-32) mmol/L BUN (7-18) mg/dL Creatinine (0.70-1.30) mg/dL Est Cr Clr Drug Dosing mL/min Estimated GFR (MDRD) (>60) BUN/Creatinine Ratio (9-20) Glucose (80-116) mg/dL Lactic Acid 2.5 H (0.4-2.2) mmol/L Calcium (8.6-10.2) mg/dL Total Bilirubin (0.1-1.3) mg/dL AST (5-25) IU/L ALT (12-36) U/L Alkaline Phosphatase (56-112) IU/L Creatine Kinase 378 H* (60-160) IU/L Troponin I (<0.017-0.056) ng/mL NT-Pro-B Natriuret Pep (<=450) pg/mL Total Protein (6.0-8.0) g/dL Albumin (2.9-4.5) g/dL Globulin g/dL Albumin/Globulin Ratio TSH, Ultra Sensitive (0.36-3.74) IU/mL Urine Color (YELLOW) Urine Appearance (CLEAR) Urine pH (5.0-6.5) Ur Specific [place] (1.010-1.025) Urine Protein (NEGATIVE) mg/dL Urine Glucose (UA) (NEGATIVE) mg/dL Urine Ketones (NEGATIVE) mg/dL Urine Occult Blood (NEGATIVE) Urine Nitrite (NEGATIVE) Urine Bilirubin (NEGATIVE) Urine Urobilinogen (NEGATIVE) mg/dL Ur Leukocyte Esterase (NEGATIVE) Urine RBC (0) Urine WBC (0) Ur Squamous Epith Cells (NS,R,O) Urine Bacteria (NS) Fine Granular Casts (NS) WBC Casts (NS) Meds: Medications Generic Name Dose Route Start Last Admin Trade Name Freq PRN Reason Stop Dose Admin Acetaminophen 650 mg 01/26/19 12:31 Tylenol PO Q4H PRN Pain (Mild 1-3)/fever Albuterol/Ipratropium 3 ml 01/26/19 16:00 Duoneb 3.0-0.5 Mg/3 Ml NEB QIDRT [facility] Bisacodyl 5 mg 01/26/19 12:31 Dulcolax PO DAILY PRN Constipation Sodium Chloride 1,000 mls @ 125 mls/hr 01/26/19 14:30 01/26/19 14:32 Normal Saline IV 125 mls/hr ASDIRECTED [facility] Administration Vancomycin HCl 500 mg/ 500 mls @ 333.333 mls/hr 01/26/19 15:00 Vancomycin HCl 750 mg/ Sodium IV 01/26/19 16:29 Chloride ONETIME ONE Metoprolol Tartrate 25 mg 01/26/19 14:30 Lopressor PO 01/26/19 21:01 BID [facility] Ondansetron HCl 4 mg 01/26/19 12:31 Zofran Odt PO Q4H PRN nausea, able to take PO Vancomycin HCl 1 gm 01/26/19 15:00 Vancomycin IV .PHARMACY TO DOSE [facility] Discontinued Medications Generic Name Dose Route Start Last Admin Trade Name Freq PRN Reason Stop Dose Admin Ceftriaxone Sodium 1 gm 01/26/19 12:45 01/26/19 12:50 Rocephin IVPUSH 01/26/19 12:46 1 gm ONETIME ONE Administration - Re-Assessments/Exams Free Text/Narrative Re-Assessment/Exam: 01/26/19 15:08 Chest x-ray no clear evidence for infiltrate Departure - Departure Time of Disposition: 11:00 (Neutrophilic leukocytosis etiology indeterminate rule out infection will be treated for potential infection with antibiotics. Elevated troponin suggest myocardial injury, ischemia and/or demand ischemia without changes in EKG. Status discussed with Dr. Singh. D-dimer is not PE mediated, probably reflective of his age also Normal d dimer can be up to the range of 3 times normal for elderly per JAQUELIN PE, EU study 6000+ patient's 2016. Mild heart failure. Probably CHF is not the etiology for the patient's elevated troponin. Long discussion with the son and granddaughter and patient regarding her preferences. He would like To stay here as opposed to go to [facility]. At present he is not interested in cardiovascular intervention and/or stent placement. Plan treat conservatively) Disposition: Admitted As Inpatient 65 Condition: Good Clinical Impression: Demand ischemia of myocardium, Neutrophilic leukocytosis Myocardial infarction Qualifiers: Myocardial infarction type: unspecified Involved coronary artery: unspecified coronary artery Qualified Code(s): I21.9 - Acute myocardial infarction, unspecified Congestive heart failure Qualifiers: Heart failure type: diastolic Heart failure chronicity: chronic Qualified Code( s): I50.32 - Chronic diastolic (congestive) heart failure Rhabdomyolysis Qualifiers: Rhabdomyolysis type: traumatic Encounter type: initial encounter Qualified Code (s): T79.6XXA - Traumatic ischemia of muscle, initial encounter - Discharge Information *PRESCRIPTION DRUG MONITORING PROGRAM REVIEWED*: Not Applicable *COPY OF PRESCRIPTION DRUG MONITORING REPORT IN PATIENT JAZZMINE: Not Applicable - My Orders Last 24 Hours: My Active Orders 01/26/19 10:09 CXR [Chest 1V Frontal] [CR] Stat Head wo Cont [CT] Stat 01/26/19 10:10 EKG Documentation Completion [RC] ASDIRECTED 01/26/19 10:14 Cervical Spine wo Cont [CT] Stat 01/26/19 10:26 CULTURE STREP A CONFIRMATION [RM] Stat STREP SCRN A RAPID W CULT CONF [RM] Stat 01/26/19 11:33 Blood Culture x2 Reflex Set [OM.PC] Urgent 01/26/19 11:50 CULTURE BLOOD [BC] Urgent 01/26/19 12:00 CULTURE BLOOD [BC] Urgent - Assessment/Plan Last 24 Hours: My Active Orders 01/26/19 10:09 CXR [Chest 1V Frontal] [CR] Stat Head wo Cont [CT] Stat 01/26/19 10:10 EKG Documentation Completion [RC] ASDIRECTED 01/26/19 10:14 Cervical Spine wo Cont [CT] Stat 01/26/19 10:26 CULTURE STREP A CONFIRMATION [RM] Stat STREP SCRN A RAPID W CULT CONF [RM] Stat 01/26/19 11:33 Blood Culture x2 Reflex Set [OM.PC] Urgent 01/26/19 11:50 CULTURE BLOOD [BC] Urgent 01/26/19 12:00 CULTURE BLOOD [BC] Urgent
[2019-01-26] MEDS ORDERED: Bisacodyl 5 MG Tab PO PRN (12:31)
[2019-01-26] MEDS ORDERED: Ondansetron 4 MG Tab.DIS PO PRN (12:31)
[2019-01-26] MEDS ORDERED: Acetaminophen 325 MG Tab PO PRN (12:31)
[2019-01-26] MEDS ORDERED: cefTRIAXone 1 GM Vial IVPUSH ONE (12:45)
[2019-01-26] MEDS: Sodium Chloride 0.9% 1,000 ML IV SCH (14:32)
[2019-01-26] MEDS ORDERED: SODIUM CHLORIDE 0.9% IV ONE (15:00)
[2019-01-26] MEDS ORDERED: VANCOMYCIN IV ONE (15:00)
[2019-01-26] MEDS ORDERED: Vancomycin 1 GM SDV IV SCH (15:00)
[2019-01-26] MEDS: Metoprolol Tartrate 25 MG Tab PO SCH ×2 (15:29→20:18)
[2019-01-26] MEDS: Albuterol/Ipratropium 3.0-0.5 MG/3 ML Neb Soln NEB SCH ×2 (16:41→20:18)
[2019-01-26] MEDS: amLODIPine 5 MG Tab PO SCH (20:18)
[2019-01-27] MEDS: Sodium Chloride 0.9% 1,000 ML IV SCH (00:20)
[2019-01-27] MEDS: Albuterol/Ipratropium 3.0-0.5 MG/3 ML Neb Soln NEB SCH ×4 (06:37→20:30)
[2019-01-27] MEDS: Aspirin 81 MG Tab.EC PO SCH (09:30)
[2019-01-27] MEDS: Clopidogrel 75 MG Tab PO SCH (09:30)
[2019-01-27] MEDS: Metoprolol Tartrate 25 MG Tab PO SCH ×2 (10:43→20:30)
--- NOTE | 2019-01-27 11:12 | HP ---
ADMISSION DATE: 01/26/2019 REASON FOR VISIT: Fall at home, lethargy, weakness. HISTORY OF PRESENT ILLNESS: Greg Eden is an 88-year-old male, who lives in [facility], was brought to [facility]. Story obtained from the patient, more importantly daughter. Lives alone independently in his home. Daughter had spoken to him the evening prior to admission. He had little cough and cold, little raspiness to his voice. He had been out to the bar for a brief time, 2 drinks, long-term friends. She decided to check him on the morning of 01/26/2019, went to the home, he was up, met her at the door, but for likely a lengthy period of time late evening after 9 had fallen, was lying on the floor for that time. Described no injury or fall or concerns. He was evaluated. Laboratory studies were concerning. Pneumonia and sepsis an issue. Appropriate intervention and treatment were provided and concordantly admitted to the hospital for treatment. MEDICATIONS: On admission include; 1. Tylenol p.r.n. 2. Nexium 20 mg 1 p.o. daily, GERD. 3. Lovastatin 40 mg one p.o. daily, hyperlipidemia. 4. 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 5. Metoprolol 100 mg ER at bedtime. 6. Nitroglycerin p.r.n. 7. Amlodipine 5 mg daily. 8. Baby aspirin. 9. Plavix 75. ALLERGIES: No known allergies. PAST MEDICAL HISTORY: Significant for previous coronary bypass surgery and prostate surgery. No other operative procedures, hospitalizations, unusual childhood diseases. FAMILY HISTORY: Family medical problems include coronary artery disease and gastroesophageal reflux. SOCIAL HISTORY: Resides in [place]. 85 lives in assisted living in [place]. 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 Never smoked. No alcohol consumption or illicit drug use. One son, 1 daughter, 4 grandkids, 3 grandchildren. FAMILY HISTORY: Noncontributory. PHYSICAL EXAMINATION: VITAL SIGNS: On admission, 36.9, 95, 118/48, 71 mean blood pressure, 24, 91% on room air. GENERAL: Markedly hard of hearing. Conversation reasonable. Thought processing and memory under review. HEENT: Reveal funduscopic benign. Bright TMs. Clear nasal discharge. Mouth and oropharynx clear. Tongue midline. Good gag reflex. NECK: Benign. Thyroid small. CHEST: Coarse rhonchi at both bases. HEART: Distant heart sounds. Occasional ectopy. Sternotomy scar well healed. ABDOMEN: Benign. No hepatosplenomegaly. : Normal male genitalia. Testes normal size, shape, and contour. RECTAL: Deferred. EXTREMITIES: Well perfused. LABORATORY STUDIES: White count 18,800, hemoglobin 15.0, 85% neutrophils, D- dimer 2.05. INR 1.18. Electrolytes satisfactory. Creatinine 0.2. Lactic acid 2.5. Cardiac enzymes: 0.178, 0.202, 0.152. BNP 2059. Urinalysis clear. Some moderate blood, 5 to 10 red cells. ASSESSMENT: Recent fall, no signs of trauma, accompanying respiratory illness. PLAN: Admission to hospital is indicated, timing appropriate. Head CT normal. Cervical spine CT normal. Chest x-ray, AP frontal, revealed no obvious pneumonia, but still clinical concern. ASSESSMENT: 1. Recent fall, no evidence of trauma, evolving pneumonia. 2. Coronary artery disease, positive troponin, coronary status uncertain. PLAN: Admission to hospital is indicated. Appropriate cultures were obtained, was started on home medications, adjusted accordingly, vancomycin and Rocephin. Complementary care and well being. Adjustments accordingly. /[id number] RUPESH/[place]
--- NOTE | 2019-01-27 11:58 | PN ---
DATE SEEN: 01/27/2019 SUBJECTIVE: Greg Eden is an 88-year-old male admitted yesterday. He had a fall early evening without consequence. Seen this morning. Feeling better. Laboratory studies were reviewed, including are positive enzymes. CBC today revealed white count 15,800, normal differential. Mildly elevated bands, electrolytes satisfactory. Creatinine went from 2 to 1.5. GFR from 32 to 42. CRP 26.4. PHYSICAL EXAMINATION: GENERAL: Appears comfortable. VITAL SIGNS: Stable. ENT: Mouth and oropharynx clear. CHEST: Coarse rhonchi at both bases. HEART: No ectopy or murmur. ABDOMEN: Benign. ASSESSMENT: 1. Evolving pneumonia. 2. Coronary artery disease, cardiac status to be evaluated. PLAN: Echocardiogram will be performed, IV fluids will be discontinued. Drinking and eating well. Complementary care and well being. /[id number] RUPESH/[place]
[2019-01-27] MEDS: cefTRIAXone 1 GM Vial IV SCH (12:10)
[2019-01-27] MEDS: Vancomycin 500 MG, Vancomycin 750 MG in Sodium Chloride 0.9% 250 ML IV SCH (16:53)
[2019-01-27] MEDS: amLODIPine 5 MG Tab PO SCH (20:30)
[2019-01-28] MEDS: Albuterol/Ipratropium 3.0-0.5 MG/3 ML Neb Soln NEB SCH ×4 (06:15→20:22)
[2019-01-28] MEDS: Clopidogrel 75 MG Tab PO SCH (09:12)
[2019-01-28] MEDS: Metoprolol Tartrate 25 MG Tab PO SCH ×2 (09:12→20:22)
[2019-01-28] MEDS: Aspirin 81 MG Tab.EC PO SCH (09:12)
[2019-01-28] MEDS: cefTRIAXone 1 GM Vial IV SCH (11:29)
[2019-01-28] MEDS: Sodium Chloride 0.9% 10 ML Syringe FLUSH PRN ×2 (11:41→19:09)
--- NOTE | 2019-01-28 13:03 | PN ---
DATE SEEN: 01/28/2019 SUBJECTIVE: Greg Eden is an 88-year-old male, admitted on 01/26/2019. He had been at his home, had fallen, circumstances and issues un- established. Positive troponins, peak flow, history of CAD with bypass and stent, but clinically stable otherwise. Radiographs of chest revealed an early pneumonia. Cervical spine CT and head CT were within normal limits. Doing well. Heart failure of clinical concern, under observation. Echocardiogram planned tomorrow. Cough is better, symptoms are better, and feeling better. Outstanding laboratory studies; microbiology, blood cultures negative. Strep screen negative. Influenza testing negative. Laboratory studies from 01/27/2019; white count fell from 18,800 to 15,800, and normal differential. Electrolytes satisfactory, GFR improved from 32 to 44. OBJECTIVE: VITAL SIGNS: 83.461 kg, pulse 101 and irregular, 138/58, 84 mean blood pressure, 20 respirations, and 95% on room air. GENERAL: Appears comfortable. Markedly hard of hearing. NECK: Benign. No JVD. CHEST: Decreased breath sounds in both lung bases. HEART: Irregularly irregular. ABDOMEN: Benign. MUSCULOSKELETAL: Nil edema of lower extremities. ASSESSMENT: 1. Pneumonia. 2. Recent fall, circumstances unclear. Positive troponins. Outcome and implications uncertain. Echocardiogram planned. PLAN: 1. We will continue levofloxacin and ceftriaxone through today. 2. We will switch to Levaquin tomorrow. 3. Chest x-ray to be performed tomorrow morning, options for discharge suspected. /[id number] /[place]
[2019-01-28] MEDS: Vancomycin 500 MG, Vancomycin 750 MG in Sodium Chloride 0.9% 250 ML IV SCH (17:27)
[2019-01-28] MEDS: amLODIPine 5 MG Tab PO SCH (20:22)
[2019-01-29] MEDS: Albuterol/Ipratropium 3.0-0.5 MG/3 ML Neb Soln NEB SCH ×3 (06:01→15:38)
[2019-01-29] MEDS ORDERED: Levofloxacin 250 MG Tab PO SCH (07:00)
[2019-01-29] MEDS: Aspirin 81 MG Tab.EC PO SCH (08:10)
[2019-01-29] MEDS: Metoprolol Tartrate 25 MG Tab PO SCH (08:10)
[2019-01-29] MEDS: Clopidogrel 75 MG Tab PO SCH (08:11)
--- NOTE | 2019-01-29 10:22 | PCM.PN ---
- General Info Date of Service: 01/29/19 Subjective Update: Noted to be weak,confused at times. On his part Greg feels ready to go home. Functional Status: Reports: Pain Controlled - Review of Systems General: Reports: No Symptoms HEENT: Reports: No Symptoms Pulmonary: Reports: No Symptoms, Cough Cardiovascular: Reports: No Symptoms Gastrointestinal: Reports: No Symptoms Musculoskeletal: Reports: No Symptoms - Patient Data Vitals - Most Recent: Last Vital Signs Temp 98.4 F 01/29/19 04:00 Pulse 117 H 01/29/19 08:10 Resp 24 H 01/29/19 04:00 BP 152/92 H 01/29/19 08:10 Pulse Ox 94 L 01/29/19 04:00 Weight - Most Recent: 83.28 kg Ramakrishna Results Last 24 Hours: Microbiology 01/26/19 12:00 Aerobic Blood Culture - Preliminary Blood - Venous - Lab Draw NO GROWTH AFTER 2 DAYS Anaerobic Blood Culture - Preliminary NO GROWTH AFTER 2 DAYS 01/26/19 11:50 Aerobic Blood Culture - Preliminary Blood - Venous NO GROWTH AFTER 2 DAYS Anaerobic Blood Culture - Final 01/26/19 10:26 Quick Strep Confirmation Culture - Final Throat NO GROUP A STREP ISOLATED Group A Streptococcus Rapid Screen - Final NEGATIVE STREP A SCREEN Med Orders - Current: Current Medications Acetaminophen (Tylenol) 650 mg PO Q4H PRN PRN Reason: Pain (Mild 1-3)/fever Albuterol/Ipratropium (Duoneb 3.0-0.5 Mg/3 Ml) 3 ml NEB QIDRT [facility] Last Admin: 01/29/19 06:01 Dose: 3 ml Amlodipine Besylate (Norvasc) 5 mg PO BEDTIME [facility] Last Admin: 01/28/19 20:22 Dose: 5 mg Aspirin (Halfprin) 81 mg PO DAILY [facility] Last Admin: 01/29/19 08:10 Dose: 81 mg Bisacodyl (Dulcolax) 5 mg PO DAILY PRN PRN Reason: Constipation Ceftriaxone Sodium (Rocephin) 1 gm IV Q24H [facility] Last Admin: 01/28/19 11:29 Dose: 1 gm Clopidogrel Bisulfate (Plavix) 75 mg PO DAILY [facility] Last Admin: 01/29/19 08:11 Dose: 75 mg Vancomycin HCl 500 mg/Vancomycin HCl 750 mg/ Sodium Chloride 250 mls @ 166.667 mls/hr IV Q24H [facility] Last Admin: 01/28/19 17:27 Dose: 166.667 mls/hr Levofloxacin (Levaquin) 250 mg PO Q24H [facility] Last Admin: 01/29/19 06:01 Dose: 250 mg Metoprolol Tartrate (Lopressor) 25 mg PO BID [facility] Last Admin: 01/29/19 08:10 Dose: 25 mg Ondansetron HCl (Zofran Odt) 4 mg PO Q4H PRN PRN Reason: nausea, able to take PO Sodium Chloride (Saline Flush) 10 ml FLUSH ASDIRECTED PRN PRN Reason: Keep Vein Open Last Admin: 01/28/19 19:09 Dose: 10 ml Vancomycin HCl (Vancomycin) 1 gm IV .PHARMACY TO DOSE [facility] Discontinued Medications Ceftriaxone Sodium (Rocephin) 1 gm IVPUSH ONETIME ONE Stop: 01/26/19 12:46 Last Admin: 01/26/19 12:50 Dose: 1 gm Sodium Chloride (Normal Saline) 1,000 mls @ 125 mls/hr IV ASDIRECTED [facility] Last Admin: 01/27/19 00:20 Dose: 125 mls/hr Vancomycin HCl 500 mg/Vancomycin HCl 750 mg/ Sodium Chloride 500 mls @ 333.333 mls/hr IV ONETIME ONE Stop: 01/26/19 16:29 Last Admin: 01/26/19 15:20 Dose: 333.333 mls/hr Metoprolol Tartrate (Lopressor) 25 mg PO BID [facility] Stop: 01/26/19 21:01 Last Admin: 01/26/19 20:18 Dose: 25 mg - Exam General: Alert, Oriented HEENT: Pupils Equal Neck: Supple Lungs: Clear to Auscultation Cardiovascular: Regular Rate GI/Abdominal Exam: Normal Bowel Sounds (Male) Exam: No Hernia - Problem List & Annotations (1) Palliative care encounter SNOMED Code(s): 043048426 Code(s): Z51.5 - ENCOUNTER FOR PALLIATIVE CARE Status: Acute Current Visit: Yes (2) Congestive heart failure SNOMED Code(s): 37681367 Code(s): I50.9 - HEART FAILURE, UNSPECIFIED Status: Acute Current Visit: Yes Qualifiers: Heart failure type: diastolic Heart failure chronicity: chronic Qualified Code(s): I50.32 - Chronic diastolic (congestive) heart failure (3) Myocardial infarction SNOMED Code(s): 94132161 Code(s): I21.9 - ACUTE MYOCARDIAL INFARCTION, UNSPECIFIED Status: Acute Current Visit: Yes Qualifiers: Myocardial infarction type: unspecified Involved coronary artery: unspecified coronary artery Qualified Code(s): I21.9 - Acute myocardial infarction, unspecified (4) Confusion SNOMED Code(s): 673135085 Code(s): R41.0 - DISORIENTATION, UNSPECIFIED Status: Acute Current Visit : No (5) Fall SNOMED Code(s): 6664659, 246022532 Code(s): W19.XXXA - UNSPECIFIED FALL, INITIAL ENCOUNTER Status: Acute Current Visit: No (6) Hypertension SNOMED Code(s): 47702291 Code(s): I10 - ESSENTIAL (PRIMARY) HYPERTENSION Status: Acute Current Visit: No - Problem List Review Problem List Initiated/Reviewed/Updated: Yes - My Orders Last 24 Hours: My Active Orders 01/29/19 09:16 PT Evaluation and Treatment [CONS] Routine 01/29/19 10:30 BASIC METABOLIC PANEL,BMP [CHEM] DAILY 01/30/19 05:00 PRO B-TYPE NATRIUR PEPT,BNPPRO [CHEM] DAILY 01/30/19 05:11 CBC WITH AUTO DIFF [HEME] AM TROPONIN I [CHEM] AM - Assessment Assessment:: If OT is agreeable,and OPT,he may go home today with HH services. Will discharge on oral abx after Echo
[2019-01-29 18:31] VITALS: BP 156/87
--- NOTE | 2019-01-30 15:14 | DISCH ---
DISCHARGE DATE: 01/29/2019 REASON FOR ADMISSION: 1. Non-STEMI. 2. Recent fall. 3. Pneumonia. 4. History of coronary artery disease, hypertension, GERD. BRIEF HISTORY: This is an 88-year-old male, who was admitted with the family members, who lives independently, alone at home. He had had a cough, raspiness of the voice, and was found lying on the floor. The family has been increasingly concerned about his safety at home. Upon admission, his troponin was high and trended downwards. He was treated with Rocephin and azithromycin, improved. Physically, after Physical Therapy evaluation, he was able to be independent. There was concern for confusion, but the family will be working on disposition on an ambulatory basis. We will discharge him on Levaquin 250 mg a day for one week, and he will see Dr. Robles at the clinic on Friday next week.[facility] medicines I spent more than 35 minutes in discharge of the patient. /[id number] [place]
== END 2019-01-29 17:00 | disposition home health service (06) | DRG 280 ==
LOC: FB.ED 09:19 → FB.MS 12:31
PROVIDERS: ADMIT Family Medicine; ATTEND Family Medicine
DX: I21.9 Acute myocardial infarction, unspecified (principal); I21.4 Non-ST elevation (NSTEMI) myocardial infarction; J18.9 Pneumonia, unspecified organism; I50.32 Chronic diastolic (congestive) heart failure; I25.10 Atherosclerotic heart disease of native coronary artery without angina pectoris; M54.9 Dorsalgia, unspecified; I11.0 Hypertensive heart disease with heart failure; K21.9 Gastro-esophageal reflux disease without esophagitis; F03.90 Unspecified dementia, unspecified severity, without behavioral disturbance, psychotic disturbance, mood disturbance, and anxiety; H54.7 Unspecified visual loss; H91.90 Unspecified hearing loss, unspecified ear; G89.29 Other chronic pain; R53.1 Weakness; R05 Cough; R55 Syncope and collapse; W18.30XA Fall on same level, unspecified, initial encounter; Z79.02 Long term (current) use of antithrombotics/antiplatelets; Z79.82 Long term (current) use of aspirin; Z79.899 Other long term (current) drug therapy; Z95.1 Presence of aortocoronary bypass graft; Z51.5 Encounter for palliative care; Z95.5 Presence of coronary angioplasty implant and graft
CPT/HCPCS: 36415; 70450; 71045; 71046; 72125; 80048; 80053; 80202; 81001; 82550; 83605; 83880; 84443; 84484; 85025; 85379; 85610; 85651; 86140; 87040; 87081; 87804; 87804-59; 87880-QW; 93005; 93306; 94640; 96374; 97165-GO; 99285; 99285-25; A9270-GY; J0696; J3370; J7030; J7040; J7050; J7620-GY